=== PATIENT | male | born 1980 | race Caucasian/White ===

== ENCOUNTER 2024-01-12 06:37 | Outpatient (CLI) | payer BC, SELFPAY ==
--- NOTE | 2024-01-12 07:47 | W.ANESCHARGE ---
Anesthesia Charges Start Date/Time Anesthesia Start Date: 01/12/24 Anesthesia Start Time: 07:20 Stop Date/Time Anesthesia Stop Date: 01/12/24 Anesthesia Stop Time: 07:39
--- NOTE | 2024-01-12 08:52 | W.ANESCHARGE ---
Anesthesia Charges Start Date/Time Anesthesia Start Date: 01/12/24 Anesthesia Start Time: 07:20 Stop Date/Time Anesthesia Stop Date: 01/12/24 Anesthesia Stop Time: 07:39
== END 2024-01-12 06:38 | disposition home or self-care (01) ==
LOC: OP CLINIC 06:38
PROVIDERS: PCP Family Medicine; Visit Provider Internal Medicine Gastroenterology
DX: Z12.11 Encounter for screening for malignant neoplasm of colon (principal)
CPT/HCPCS: 00812; 45378; J2704

== ENCOUNTER 2025-02-20 08:30 | Outpatient (CLI) | payer BC, SELFPAY | END 2025-02-20 08:31 | disposition home or self-care (01) | LOC: NFLDREF 02-25 14:22 | PROVIDERS: PCP Internal Medicine; Referring Provider Internal Medicine; Visit Provider Obstetrics & Gynecology | DX: Z31.69 Encounter for other general counseling and advice on procreation (principal) | CPT/HCPCS: 89322 ==

== ENCOUNTER 2025-02-27 08:15 | Outpatient (CLI) | payer BC, SELFPAY | END 2025-02-27 08:16 | disposition home or self-care (01) | LOC: NFLDREF 03-04 18:55 | PROVIDERS: PCP Internal Medicine; Referring Provider Internal Medicine; Visit Provider Obstetrics & Gynecology | DX: Z31.69 Encounter for other general counseling and advice on procreation (principal) | CPT/HCPCS: 89322 ==